=== PATIENT | male | born 1995 | race Caucasian/White ===

== ENCOUNTER 2022-04-03 14:15 | Emergency (ER) | payer OTHER ==
[2022-04-03 14:22] VITALS: BP 123/67; PULSE 64; RESP 18; TEMP 98.4; BMI 26.6
[2022-04-03] MEDS ORDERED: FLUORESCEIN NA 1 EA STRIP ONE (15:35)
== END 2022-04-03 15:47 | disposition home or self-care (01) ==
LOC: JERFT 14:15
DX: H18.821 Corneal disorder due to contact lens, right eye (principal)
CPT/HCPCS: 99283-25